=== PATIENT | male | born 1945 | race Hispanic/Latino ===

== ENCOUNTER 2017-09-28 15:38 | Inpatient (IN) | payer MEDICARE ==
[~2017-09-28] VITALS: Ht 175.3 cm; Wt 52.2 kg
[2017-09-28] MEDS ORDERED: VANCOMYCIN 1GM/NS 250 ML 250 ML IV STA (16:18)
[2017-09-28] MEDS ORDERED: PIPER-TAZ 3.375 GM 50 ML IV STA (16:18)
[2017-09-28] MEDS ORDERED: HYDROMORPHONE 1MG/1ML INJ IV PRN (16:30)
[2017-09-28] MEDS ORDERED: ONDANSETRON HCL INJ 2 MG/ML VIAL IV PRN (16:30)
[2017-09-28 16:38] LABS: BASOPHILS % 0.4 % (0.0-1.0); EOSINOPHILS # (AUTO) 0.1 (0.0-0.4); EOSINOPHILS % 0.9 % (0.0-6.0); HEMATOCRIT 32.1 % (38.2-49.6); HEMOGLOBIN 9.9 g/dL (14.0-18.0); LYMPHOCYTES # (AUTO) 1.3 (1.0-3.2); LYMPHOCYTES % 19.7 % (18.0-39.1); MEAN CORPUSCULAR HGB CONC 30.8 g/dL (31-35); MEAN CORPUSCULAR VOLUME 87.7 fL (81-99); MONOCYTES # (AUTO) 0.8 (0.2-0.8); MONOCYTES % 11.3 % (4.4-11.3); NEUTROPHILS # (AUTO) 4.6 (2.1-6.9); NEUTROPHILS % 67.6 % (38.7-80.0); PLATELET COUNT 300 x10e3/uL (140-360); RED BLOOD COUNT 3.66 x10e6/uL (4.3-5.7); RED CELL DISTRIBUTION WIDTH 14.1 % (11.7-14.4)
[2017-09-28 16:53] LABS: ALANINE AMINOTRANSFERASE 24 IU/L (0-55); ALBUMIN 2.8 g/dL (3.5-5.0); ALBUMIN/GLOBULIN RATIO 0.5 (0.8-2.0); ALKALINE PHOSPHATASE 151 IU/L (40-150); ANION GAP 14.3 mmol/L (8-16); BLOOD UREA NITROGEN 26 mg/dL (7-26); BUN/CREATININE RATIO 32 (6-25); CALCIUM 9.1 mg/dL (8.4-10.2); CARBON DIOXIDE 28 mmol/L (22-29); CHLORIDE 105 mmol/L (98-107); CREATININE, SERUM 0.82 mg/dL (0.72-1.25); EST GLOMERULAR FILTRATION RATE > 60 ML/MIN (60-); GLUCOSE 103 mg/dL (74-118); POTASSIUM 4.3 mmol/L (3.5-5.1); SODIUM 143 mmol/L (136-145)
--- NOTE | 2017-09-28 17:09 | Diagnostic Imaging Report ---
PROCEDURE: CHEST SINGLE (PORTABLE) COMPARISON: None. INDICATIONS: COUGH FINDINGS: LUNGS: No consolidations or edema. PLEURA: No effusions or pneumothorax. HEART \T\ MEDIASTINUM: The heart is within normal size-limits. BONES \T\ SOFT TISSUES: No acute findings. Linear metallic object projecting just medial to the left clavicular head may be external to the patient. Skin folds project over the right hemithorax. CONCLUSION: No acute cardiopulmonary abnormality. Dictated by: Felix Ramesh M.D. on 09/28/2017 at 17:17 Electronically approved by: Felix Ramesh M.D. on 09/28/2017 at 17:17
[2017-09-28] MEDS: SODIUM CHLORIDE 0.9% 1000ML 1,000 ML IV SCH (18:57)
[2017-09-28] MEDS ORDERED: QUETIAPINE FUMA25 MG PEG (19:29)
[2017-09-28] MEDS ORDERED: LEVETIRACE100 MG/1 M PEG (19:29)
[2017-09-28] MEDS ORDERED: LAMOTRIGINE100 MG PEG (19:29)
[2017-09-28] MEDS ORDERED: FLUCONAZOLE100 MG PEG (19:29)
[2017-09-28] MEDS ORDERED: PHENYTOIN125 MG/5 M PEG (19:29)
[2017-09-28] MEDS ORDERED: CLONAZEPAM1 MG PEG (19:31)
[2017-09-28 21:20] VITALS: BP 110/79
[2017-09-28] MEDS ORDERED: VANCOMYCIN 1GM/NS 250 ML 250 ML ONE (21:37)
[2017-09-29] VITALS: BP 120/74
[2017-09-29 04:00] VITALS: BP 124/72
[2017-09-29] MEDS: QUETIAPINE FUMARATE 25 MG TAB PEG SCH ×3 (06:23→21:00)
[2017-09-29] MEDS ORDERED: ACETAMINOPHEN 325 MG TAB PO ONE (06:45)
[2017-09-29] MEDS ORDERED: FUROSEMIDE INJ 10 MG/ML 2 ML VIAL IV ONE (06:45)
[2017-09-29 07:49] VITALS: BP 125/59
[2017-09-29] MEDS: ALBUTEROL/IPRATROPIUM 3 ML NEB NEB SCH ×3 (07:50→20:00)
[2017-09-29] MEDS: LEVETIRACETAM ORAL SOLUTION 500 MG/5 ML SOLN PEG SCH ×2 (11:08→17:00)
[2017-09-29] MEDS: LAMOTRIGINE 100 MG TAB PEG SCH ×2 (11:12→17:00)
--- NOTE | 2017-09-29 11:38 | Consultation ---
DATE OF CONSULTATION: September 29, 2017 REFERRING PHYSICIAN: Dr. Gonzalez HISTORY OF PRESENT ILLNESS: Patient is a 72-year-old male, bedridden, who was admitted with bleeding from the sacral ulcer. 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 He is not completely bedridden, says this is the first time he has had sacral ulcer, apparently started bleeding yesterday and he came to the emergency room, but there was no active bleeding at the time the patient was seen. PAST MEDICAL HISTORY: Significant for hypertension and diabetes. MEDICATIONS: Listed in the chart. ALLERGIES: HE HAS NO KNOWN ALLERGIES. FAMILY HISTORY: Noncontributory. SOCIAL HISTORY: Noncontributory. REVIEW OF SYSTEMS: Cannot be obtained. PHYSICAL EXAMINATION: The patient is awake, does not answer questions. Significant findings are contractures of the extremities. In the sacral area, there is an ulcer that is about 5 x 6 cm with a central necrotic area with some granulation tissue surrounding. Small amount of bleeding on the patient's dressing is noted, but no active bleeding. ASSESSMENT: A 72-year-old male with stage 3 sacral ulcer, admitted with bleeding, but also some necrotic tissue. Likely benefit from debridement, which I plan to schedule to be done in operating room. Procedure was explained to the patient's family. Thank you for asking me to see Mr. Miranda. Job#: [id number]
[2017-09-29 12:00] VITALS: BP 120/53
[2017-09-29] MEDS: PHENYTOIN 100 MG/4 ML CUP PO SCH (12:00)
[2017-09-29 16:04] VITALS: BP 117/56
[2017-09-29] MEDS ORDERED: LEVETIRACETAM 500 MG TAB PEG SCH (17:00)
[2017-09-29] MEDS ORDERED: ENOXAPARIN SOD INJ 40 MG/0.4 ML SYR SC SCH (18:45)
[2017-09-29] MEDS: GUAIFENESIN 200 MG/10 ML UDC PO SCH (19:00)
[2017-09-29] MEDS: LEVOFLOXACIN 750MG/D5W 150ML 150 ML IV SCH (19:15)
[2017-09-29 20:00] VITALS: BP 106/75
[2017-09-29] MEDS: PIPER-TAZ 3.375 GM 50 ML IV SCH (20:00)
--- NOTE | 2017-09-29 20:36 | History and Physical ---
PRIMARY CARE PROVIDER: Dr. Jeremy Gonzalez. CHIEF COMPLAINT: Infected sacral wound was uncontrolled bleeding. HISTORY OF PRESENT ILLNESS: Mr. Miranda is a 72-year-old gentleman with a history of severe stroke with dementia and dysphagia, aphagia with a PEG and seizure disorder. The patient is taken care of at home by his . She was doing a dressing changes on his sacral wound, which started bleeding and she could not get it to stop and so she called EMS and the patient was transported here for evaluation. REVIEW OF SYSTEMS: Unobtainable as the patient is noncommunicative. PAST MEDICAL HISTORY: Significant for the old stroke with seizure disorder. He has a history of PEG placement. CURRENT MEDICATIONS: Keppra 250 mg twice daily. Dilantin 125 mg daily. Lamictal 200 mg twice daily. Seroquel 50 mg 3 times a day. Clonazepam 2 mg at bedtime. ALLERGIES: HE HAS A STATED ALLERGY TO RISPERDAL. FAMILY HISTORY: Remarkable for hypertension. SOCIAL HISTORY: The patient is being cared for at home by his family. He is bedridden and nonambulatory with a PEG feeding tube. He does not smoke, drink or use illegal drugs obviously and requires complete care by his family, total care. PHYSICAL EXAM: PSYCHIATRIC: The patient is sleeping. He was given Ativan earlier today. He has a normal body habitus. Is in no acute distress. VITAL SIGNS: Blood pressure 117/56. Pulse 93 and regular. Respiratory rate 22. O2 sat 93% on 2 liter nasal cannula. Temp 99.1. HEENT: Head is atraumatic. His eyes are anicteric with clear conjunctivae. Ears and nares are without erythema or discharge. Oropharynx is clear. NECK: Is supple with no mass or thyromegaly. LYMPHATIC SYSTEM: He has no palpable cervical, axillary or inguinal adenopathy. CARDIOVASCULAR: He has a regular rate and rhythm without murmur or extra heart sounds. No peripheral edema. Has no carotid bruit. RESPIRATORY: He has coarse breath sounds with some bronchial congestion with normal respiratory effort. No wheezing. GASTROINTESTINAL: Abdomen is soft with no hepatosplenomegaly or masses palpable. Nontender. Normal bowel sounds are present. He has a functioning PEG tube in place. CUTANEOUS: His skin is warm and dry to touch. He has a stage 4 sacral decubitus. with some gross purulence and necrotic tissue as well as some active bleeding. MUSCULOSKELETAL: His joints are normal alignment without erythema or swelling. Has no calf tenderness. NEUROLOGIC: The patient is demented and does not follow commands but he does move all extremities. DIAGNOSTIC STUDIES: Chest x-ray shows no acute disease. CBC shows a white count of 6.81 with a normal differential. Hemoglobin 9.9, hematocrit 32.1 and platelet count 300,000. His chemistry shows normal electrolytes. CO2 28. Creatinine 0.82. BUN 26 for a normal GFR. Calcium 9.1. Glucose 103. Transaminases, bilirubin and alk phos were all normal. IMPRESSION AND PLAN 1. Infected and bleeding sacral decubitus. The patient has been started on IV vancomycin and Zosyn. Wound care has been consulted as well as the wound cultures have been ordered and Dr. Murray has been consulted for possible debridement and the patient has been started on IV vancomycin and Zosyn empirically. 2. Bronchitis. The patient was started on IV Levaquin for that as well as nebulizer treatments and Mucinex for expectoration. 3. Old stroke with seizures and dementia. The patient will continue his tube feeding and continue Keppra, Lamictal and Seroquel as before. 4. For prophylaxis the patient is on Lovenox for DVT prophylaxis and Pepcid for GI prophylaxis. Job#: [id number]
[2017-09-29] MEDS: VANCOMYCIN 1GM/NS 250 ML 250 ML IV SCH (21:00)
[2017-09-29] MEDS: FAMOTIDINE 20 MG TAB PEG SCH (21:00)
[2017-09-29] MEDS ORDERED: CLONAZEPAM 1 MG TAB PEG SCH (21:00)
[2017-09-29] MEDS: METOCLOPRAMIDE HCL 10 MG TAB PEG SCH (22:00)
[2017-09-30] VITALS: BP 120/68
[2017-09-30] MEDS: GUAIFENESIN 200 MG/10 ML UDC PO SCH ×4 (00:08→18:14)
[2017-09-30] MEDS: ALBUTEROL/IPRATROPIUM 3 ML NEB NEB SCH ×4 (00:30→20:02)
[2017-09-30] MEDS: PIPER-TAZ 3.375 GM 50 ML IV SCH ×4 (02:00→21:01)
[2017-09-30 04:00] VITALS: BP 119/89
[2017-09-30] MEDS: METOCLOPRAMIDE HCL 10 MG TAB PEG SCH ×3 (05:37→23:16)
[2017-09-30 07:03] LABS: BASOPHILS % 0.3 % (0.0-1.0); EOSINOPHILS % 0.3 % (0.0-6.0); HEMATOCRIT 27.5 % (38.2-49.6); HEMOGLOBIN 8.5 g/dL (14.0-18.0); LYMPHOCYTES # (AUTO) 1.1 (1.0-3.2); LYMPHOCYTES % 18.7 % (18.0-39.1); MEAN CORPUSCULAR HEMOGLOBIN 26.9 pg (28-32); MEAN CORPUSCULAR HGB CONC 30.9 g/dL (31-35); MONOCYTES # (AUTO) 0.8 (0.2-0.8); MONOCYTES % 13.1 % (4.4-11.3); NEUTROPHILS # (AUTO) 3.9 (2.1-6.9); NEUTROPHILS % 67.1 % (38.7-80.0); PLATELET COUNT 318 x10e3/uL (140-360); RED BLOOD COUNT 3.16 x10e6/uL (4.3-5.7); RED CELL DISTRIBUTION WIDTH 13.7 % (11.7-14.4)
[2017-09-30 07:25] LABS: ANION GAP 13.2 mmol/L (8-16); BLOOD UREA NITROGEN 15 mg/dL (7-26); BUN/CREATININE RATIO 20 (6-25); CALCIUM 8.3 mg/dL (8.4-10.2); CARBON DIOXIDE 25 mmol/L (22-29); CHLORIDE 106 mmol/L (98-107); CREATININE, SERUM 0.75 mg/dL (0.72-1.25); EST GLOMERULAR FILTRATION RATE > 60 ML/MIN (60-); GLUCOSE 82 mg/dL (74-118); MAGNESIUM 1.3 MG/DL (1.3-2.1); POTASSIUM 3.2 mmol/L (3.5-5.1); SODIUM 141 mmol/L (136-145)
[2017-09-30 07:38] VITALS: BP 110/67
[2017-09-30 07:50] LABS: FREE T4 (FREE THYROXINE) 0.86 ng/dL (0.8-1.8); THYROID STIMULATING HORMONE 2.727 uIU/mL (0.350-4.940)
[2017-09-30] MEDS ORDERED: PHENYTOIN PEG SCH (09:00)
[2017-09-30] MEDS: QUETIAPINE FUMARATE 25 MG TAB PEG SCH ×3 (09:31→23:16)
[2017-09-30] MEDS: LEVETIRACETAM ORAL SOLUTION 500 MG/5 ML SOLN PEG SCH ×2 (09:31→18:14)
[2017-09-30] MEDS: LAMOTRIGINE 100 MG TAB PEG SCH ×2 (09:31→18:14)
[2017-09-30] MEDS: FAMOTIDINE 20 MG TAB PEG SCH ×2 (09:31→23:16)
[2017-09-30] MEDS ORDERED: POTASSIUM CHLORIDE 20MEQ/100ML 100 ML IV STA (09:42)
[2017-09-30] MEDS ORDERED: POTASSIUM CHLORIDE 20 MEQ TAB CR PO STA (09:42)
[2017-09-30] MEDS: SODIUM CHLORIDE 0.9% 1000ML 1,000 ML IV SCH ×3 (10:07→22:45)
[2017-09-30] MEDS: VANCOMYCIN 1GM/NS 250 ML 250 ML IV SCH ×2 (12:26→21:00)
[2017-09-30] MEDS ORDERED: CLONAZEPAM 1 MG TAB PEG SCH ×2 (12:31→17:00)
[2017-09-30 12:40] VITALS: BP 146/92
[2017-09-30] MEDS ORDERED: ACETAMINOPHEN 325 MG TAB PO PRN (12:45)
[2017-09-30] MEDS: HYDROCODONE BIT/ACETAMINOPHEN 2.5 MG/108MG PER 5 ML SOLUTION PEG PRN (13:04)
[2017-09-30] MEDS: PHENYTOIN 100 MG/4 ML CUP PO SCH (13:05)
[2017-09-30 15:46] VITALS: BP 110/67
--- NOTE | 2017-09-30 15:49 | Operative Report ---
DATE OF PROCEDURE: September 30, 2017 PREOPERATIVE DIAGNOSIS: Necrotic sacral ulcer with bleeding. POSTOPERATIVE DIAGNOSIS: Necrotic sacral ulcer with bleeding secondary to subcutaneous vessel. PROCEDURE: Excisional debridement of sacral ulcer with suture ligation of bleeding vessel. NON LICENSED NUCLEAR EQUIPMENT OPERATOR: None. ANESTHESIA: General. INDICATIONS AND FINDINGS: Patient is a 72-year-old male bedridden who has a sacral ulcer which was bleeding. At surgery there was necrotic tissue essentially and area of bleeding adjacent to this and it was found that the ulcer was eroding into a subcutaneous vessel which was bleeding. TECHNIQUE: After adequate general anesthesia with the patient in the right side down position, the sacral area was prepped and draped in a sterile fashion with Betadine solution. There was some bleeding from the area adjacent the central area of necrosis over the sacrum. Examination revealed subcutaneous vessel this area that was bleeding. Necrotic tissue was excised and the subcutaneous vessel was identified and suture ligated with 2-0 Vicryl and the bleeding stopped. All necrotic tissue and some undermined tissue was excised back to healthy bleeding tissue. Another area at the skin edge inferiorly was also suture ligated with 2-0 Vicryl. Other areas were cauterized with electrocautery and hemostasis achieved. The wound was then irrigated with saline and inspected for hemostasis which was seen to be adequate. The wound was then dressed open with saline moistened gauze and sterile dressing applied. Patient tolerated procedure well. Estimated blood loss was 25 mL. There were no complications. All counts were correct. Patient was taken to the recovery room in satisfactory condition. Job#: [id number] cc:APRIL WASSERMAN MD
[2017-09-30] MEDS: LEVOFLOXACIN 750MG/D5W 150ML 150 ML IV SCH (18:14)
[2017-09-30 22:00] VITALS: BP 133/74
[2017-09-30] MEDS: CLONAZEPAM 1 MG TAB PEG SCH (23:16)
[2017-10-01] MEDS: ALBUTEROL/IPRATROPIUM 3 ML NEB NEB SCH ×4 (00:18→19:43)
[2017-10-01 00:47] VITALS: BP 137/72
[2017-10-01] MEDS: PIPER-TAZ 3.375 GM 50 ML IV SCH ×4 (01:53→21:00)
[2017-10-01] MEDS: GUAIFENESIN 200 MG/10 ML UDC PO SCH ×4 (01:53→18:33)
[2017-10-01 04:00] VITALS: BP 95/87
[2017-10-01] MEDS: METOCLOPRAMIDE HCL 10 MG TAB PEG SCH ×3 (05:07→21:24)
[2017-10-01] MEDS: HYDROCODONE BIT/ACETAMINOPHEN 2.5 MG/108MG PER 5 ML SOLUTION PEG PRN (05:08)
[2017-10-01 07:38] LABS: BASOPHILS % 0.2 % (0.0-1.0); EOSINOPHILS % 0.6 % (0.0-6.0); HEMOGLOBIN 8.1 g/dL (14.0-18.0); LYMPHOCYTES # (AUTO) 0.8 (1.0-3.2); MEAN CORPUSCULAR HEMOGLOBIN 26.9 pg (28-32); MEAN CORPUSCULAR HGB CONC 31.2 g/dL (31-35); MEAN CORPUSCULAR VOLUME 86.4 fL (81-99); MONOCYTES # (AUTO) 0.8 (0.2-0.8); MONOCYTES % 14.6 % (4.4-11.3); NEUTROPHILS # (AUTO) 3.6 (2.1-6.9); NEUTROPHILS % 68.4 % (38.7-80.0); PLATELET COUNT 284 x10e3/uL (140-360); RED BLOOD COUNT 3.01 x10e6/uL (4.3-5.7); RED CELL DISTRIBUTION WIDTH 13.8 % (11.7-14.4)
[2017-10-01 07:39] VITALS: BP 112/66
[2017-10-01 07:51] LABS: ANION GAP 12.4 mmol/L (8-16); BLOOD UREA NITROGEN 10 mg/dL (7-26); BUN/CREATININE RATIO 13 (6-25); CALCIUM 8.4 mg/dL (8.4-10.2); CARBON DIOXIDE 26 mmol/L (22-29); CHLORIDE 108 mmol/L (98-107); CREATININE, SERUM 0.76 mg/dL (0.72-1.25); EST GLOMERULAR FILTRATION RATE > 60 ML/MIN (60-); GLUCOSE 89 mg/dL (74-118); POTASSIUM 3.4 mmol/L (3.5-5.1); SODIUM 143 mmol/L (136-145)
[2017-10-01] MEDS: FAMOTIDINE 20 MG TAB PEG SCH ×2 (08:56→21:24)
[2017-10-01] MEDS: LEVETIRACETAM ORAL SOLUTION 500 MG/5 ML SOLN PEG SCH ×2 (08:56→16:47)
[2017-10-01] MEDS: LAMOTRIGINE 100 MG TAB PEG SCH ×2 (08:56→16:40)
[2017-10-01] MEDS: QUETIAPINE FUMARATE 25 MG TAB PEG SCH ×3 (08:56→21:24)
[2017-10-01] MEDS: CLONAZEPAM 1 MG TAB PEG SCH ×2 (08:56→21:24)
[2017-10-01 11:28] VITALS: BP 118/59
[2017-10-01] MEDS ORDERED: POTASSIUM CHLORIDE 20 MEQ TAB CR PO STA (14:04)
[2017-10-01] MEDS: PHENYTOIN 100 MG/4 ML CUP PO SCH (14:08)
[2017-10-01 15:41] VITALS: BP 105/68
[2017-10-01] MEDS: MAGNESIUM OXIDE 400 MG TAB PEG SCH (16:40)
[2017-10-01] MEDS: LEVOFLOXACIN 750MG/D5W 150ML 150 ML IV SCH (18:33)
[2017-10-01 20:00] VITALS: BP 109/72
[2017-10-02] VITALS: BP 127/73
[2017-10-02] MEDS: GUAIFENESIN 200 MG/10 ML UDC PO SCH ×4 (00:53→18:24)
[2017-10-02] MEDS: ALBUTEROL/IPRATROPIUM 3 ML NEB NEB SCH ×5 (01:15→23:05)
[2017-10-02] MEDS: PIPER-TAZ 3.375 GM 50 ML IV SCH ×2 (02:14→08:34)
[2017-10-02 04:00] VITALS: BP 114/54
[2017-10-02] MEDS: METOCLOPRAMIDE HCL 10 MG TAB PEG SCH ×3 (06:18→22:00)
[2017-10-02 07:01] LABS: BASOPHILS % 0.2 % (0.0-1.0); EOSINOPHILS # (AUTO) 0.1 (0.0-0.4); EOSINOPHILS % 1.6 % (0.0-6.0); HEMATOCRIT 26.1 % (38.2-49.6); HEMOGLOBIN 8.3 g/dL (14.0-18.0); LYMPHOCYTES # (AUTO) 1.1 (1.0-3.2); LYMPHOCYTES % 20.4 % (18.0-39.1); MEAN CORPUSCULAR HEMOGLOBIN 27.2 pg (28-32); MEAN CORPUSCULAR HGB CONC 31.8 g/dL (31-35); MEAN CORPUSCULAR VOLUME 85.6 fL (81-99); MONOCYTES # (AUTO) 0.7 (0.2-0.8); MONOCYTES % 12.8 % (4.4-11.3); NEUTROPHILS # (AUTO) 3.3 (2.1-6.9); NEUTROPHILS % 64.6 % (38.7-80.0); PLATELET COUNT 294 x10e3/uL (140-360); RED BLOOD COUNT 3.05 x10e6/uL (4.3-5.7); RED CELL DISTRIBUTION WIDTH 14.1 % (11.7-14.4)
[2017-10-02 07:14] LABS: ANION GAP 10.4 mmol/L (8-16); BLOOD UREA NITROGEN 10 mg/dL (7-26); BUN/CREATININE RATIO 13 (6-25); CARBON DIOXIDE 26 mmol/L (22-29); CHLORIDE 109 mmol/L (98-107); CREATININE, SERUM 0.78 mg/dL (0.72-1.25); EST GLOMERULAR FILTRATION RATE > 60 ML/MIN (60-); GLUCOSE 108 mg/dL (74-118); MAGNESIUM 1.6 MG/DL (1.3-2.1); POTASSIUM 3.4 mmol/L (3.5-5.1); SODIUM 142 mmol/L (136-145)
[2017-10-02 07:37] VITALS: BP 115/61
[2017-10-02] MEDS: CLONAZEPAM 1 MG TAB PEG SCH ×2 (08:34→21:18)
[2017-10-02] MEDS: FAMOTIDINE 20 MG TAB PEG SCH ×2 (08:34→21:18)
[2017-10-02] MEDS: MAGNESIUM OXIDE 400 MG TAB PEG SCH ×2 (08:34→18:24)
[2017-10-02] MEDS: QUETIAPINE FUMARATE 25 MG TAB PEG SCH ×3 (08:34→21:18)
[2017-10-02] MEDS: LEVETIRACETAM ORAL SOLUTION 500 MG/5 ML SOLN PEG SCH ×2 (08:34→18:24)
[2017-10-02] MEDS: LAMOTRIGINE 100 MG TAB PEG SCH ×2 (08:34→18:24)
[2017-10-02] MEDS ORDERED: POTASSIUM CHLORIDE 20MEQ/100ML 100 ML IV ONE (12:15)
[2017-10-02 12:54] VITALS: BP 106/59
[2017-10-02] MEDS ORDERED: POTASSIUM CHLORIDE 20 MEQ TAB CR PO ONE (13:20)
[2017-10-02] MEDS: ACETYLCYSTEINE 20% INHAL SOLN 30 ML VIAL INH SCH ×3 (13:35→23:05)
[2017-10-02] MEDS: PHENYTOIN 100 MG/4 ML CUP PO SCH (13:38)
[2017-10-02 16:54] VITALS: BP 127/65
[2017-10-02] MEDS: ASCORBIC ACID 500 MG TAB PEG SCH (18:24)
[2017-10-02] MEDS: FERROUS SULFATE 325 MG TAB PEG SCH (18:24)
[2017-10-02] MEDS: CALCIUM CARBONATE 500 MG CHEWABLE TABS PEG SCH (18:24)
[2017-10-02] MEDS: LEVOFLOXACIN 750MG/D5W 150ML 150 ML IV SCH (18:25)
[2017-10-02 20:00] VITALS: BP 135/78
[2017-10-03] VITALS: BP 109/76
[2017-10-03] MEDS: ALBUTEROL/IPRATROPIUM 3 ML NEB NEB SCH ×6 (02:57→23:45)
[2017-10-03] MEDS: ACETYLCYSTEINE 20% INHAL SOLN 30 ML VIAL INH SCH ×6 (02:57→23:45)
[2017-10-03 04:00] VITALS: BP 136/55
[2017-10-03] MEDS: METOCLOPRAMIDE HCL 10 MG TAB PEG SCH ×3 (05:19→22:40)
[2017-10-03] MEDS: GUAIFENESIN 200 MG/10 ML UDC PO SCH ×6 (05:20→23:21)
[2017-10-03 08:13] LABS: BASOPHILS % 0.3 % (0.0-1.0); EOSINOPHILS # (AUTO) 0.1 (0.0-0.4); EOSINOPHILS % 1.5 % (0.0-6.0); HEMATOCRIT 28.9 % (38.2-49.6); HEMOGLOBIN 9.1 g/dL (14.0-18.0); LYMPHOCYTES # (AUTO) 1.3 (1.0-3.2); LYMPHOCYTES % 20.3 % (18.0-39.1); MEAN CORPUSCULAR HEMOGLOBIN 26.8 pg (28-32); MEAN CORPUSCULAR HGB CONC 31.5 g/dL (31-35); MEAN CORPUSCULAR VOLUME 85.3 fL (81-99); MONOCYTES # (AUTO) 0.7 (0.2-0.8); MONOCYTES % 9.8 % (4.4-11.3); NEUTROPHILS # (AUTO) 4.5 (2.1-6.9); NEUTROPHILS % 67.8 % (38.7-80.0); PLATELET COUNT 335 x10e3/uL (140-360); RED BLOOD COUNT 3.39 x10e6/uL (4.3-5.7); RED CELL DISTRIBUTION WIDTH 14.2 % (11.7-14.4)
[2017-10-03 08:41] LABS: ANION GAP 11.6 mmol/L (8-16); BLOOD UREA NITROGEN 11 mg/dL (7-26); BUN/CREATININE RATIO 15 (6-25); CALCIUM 8.5 mg/dL (8.4-10.2); CARBON DIOXIDE 25 mmol/L (22-29); CHLORIDE 108 mmol/L (98-107); CREATININE, SERUM 0.71 mg/dL (0.72-1.25); EST GLOMERULAR FILTRATION RATE > 60 ML/MIN (60-); GLUCOSE 115 mg/dL (74-118); MAGNESIUM 1.4 MG/DL (1.3-2.1); POTASSIUM 3.6 mmol/L (3.5-5.1); SODIUM 141 mmol/L (136-145)
[2017-10-03 08:56] VITALS: BP_SYST 114; BP_SYST 130; BP_DIAS 58; BP_DIAS 65
[2017-10-03] MEDS: CALCIUM CARBONATE 500 MG CHEWABLE TABS PEG SCH ×2 (09:30→17:14)
[2017-10-03] MEDS: LEVETIRACETAM ORAL SOLUTION 500 MG/5 ML SOLN PEG SCH ×2 (09:30→17:14)
[2017-10-03] MEDS: QUETIAPINE FUMARATE 25 MG TAB PEG SCH ×3 (09:30→20:22)
[2017-10-03] MEDS: ASCORBIC ACID 500 MG TAB PEG SCH ×2 (09:30→17:14)
[2017-10-03] MEDS: MULTIVITAMINS 5 ML LIQUID GT SCH (09:30)
[2017-10-03] MEDS: FERROUS SULFATE 325 MG TAB PEG SCH ×2 (09:30→17:14)
[2017-10-03] MEDS: MAGNESIUM OXIDE 400 MG TAB PEG SCH ×2 (09:30→17:14)
[2017-10-03] MEDS: FAMOTIDINE 20 MG TAB PEG SCH ×2 (09:30→20:22)
[2017-10-03] MEDS: CLONAZEPAM 1 MG TAB PEG SCH ×2 (09:30→20:22)
[2017-10-03] MEDS: LAMOTRIGINE 100 MG TAB PEG SCH ×2 (09:30→17:14)
[2017-10-03] MEDS: HYDROCODONE BIT/ACETAMINOPHEN 2.5 MG/108MG PER 5 ML SOLUTION PEG PRN (11:32)
[2017-10-03] MEDS: PHENYTOIN 100 MG/4 ML CUP PO SCH (11:32)
[2017-10-03 13:07] VITALS: BP 128/57
[2017-10-03 16:11] VITALS: BP 107/63
[2017-10-03] MEDS: LEVOFLOXACIN 750MG/D5W 150ML 150 ML IV SCH (18:43)
[2017-10-03 20:00] VITALS: BP 92/62
[2017-10-04] VITALS: BP 102/60
[2017-10-04] MEDS: HYDROCODONE BIT/ACETAMINOPHEN 2.5 MG/108MG PER 5 ML SOLUTION PEG PRN ×3 (01:06→20:10)
[2017-10-04] MEDS: ACETYLCYSTEINE 20% INHAL SOLN 30 ML VIAL INH SCH ×6 (03:00→23:30)
[2017-10-04 04:00] VITALS: BP 102/81
[2017-10-04] MEDS: ALBUTEROL/IPRATROPIUM 3 ML NEB NEB SCH ×6 (04:15→23:30)
[2017-10-04] MEDS: GUAIFENESIN 200 MG/10 ML UDC PO SCH ×4 (06:13→23:45)
[2017-10-04] MEDS: METOCLOPRAMIDE HCL 10 MG TAB PEG SCH ×3 (06:13→21:06)
[2017-10-04 07:58] VITALS: BP 110/58
[2017-10-04 08:42] LABS: BASOPHILS % 0.3 % (0.0-1.0); EOSINOPHILS # (AUTO) 0.1 (0.0-0.4); EOSINOPHILS % 0.7 % (0.0-6.0); HEMATOCRIT 27.5 % (38.2-49.6); HEMOGLOBIN 8.5 g/dL (14.0-18.0); LYMPHOCYTES # (AUTO) 0.9 (1.0-3.2); LYMPHOCYTES % 12.6 % (18.0-39.1); MEAN CORPUSCULAR HEMOGLOBIN 26.6 pg (28-32); MEAN CORPUSCULAR HGB CONC 30.9 g/dL (31-35); MEAN CORPUSCULAR VOLUME 86.2 fL (81-99); MONOCYTES # (AUTO) 0.6 (0.2-0.8); MONOCYTES % 8.8 % (4.4-11.3); NEUTROPHILS # (AUTO) 5.2 (2.1-6.9); NEUTROPHILS % 77.3 % (38.7-80.0); PLATELET COUNT 311 x10e3/uL (140-360); RED BLOOD COUNT 3.19 x10e6/uL (4.3-5.7); RED CELL DISTRIBUTION WIDTH 14.2 % (11.7-14.4)
[2017-10-04] MEDS: MULTIVITAMINS 5 ML LIQUID GT SCH (09:00)
[2017-10-04 09:25] LABS: ANION GAP 10.5 mmol/L (8-16); BLOOD UREA NITROGEN 16 mg/dL (7-26); BUN/CREATININE RATIO 21 (6-25); CALCIUM 8.3 mg/dL (8.4-10.2); CARBON DIOXIDE 27 mmol/L (22-29); CHLORIDE 106 mmol/L (98-107); CREATININE, SERUM 0.77 mg/dL (0.72-1.25); EST GLOMERULAR FILTRATION RATE > 60 ML/MIN (60-); GLUCOSE 148 mg/dL (74-118); POTASSIUM 3.5 mmol/L (3.5-5.1); SODIUM 140 mmol/L (136-145)
[2017-10-04] MEDS: LEVETIRACETAM ORAL SOLUTION 500 MG/5 ML SOLN PEG SCH ×2 (09:45→17:39)
[2017-10-04] MEDS: CALCIUM CARBONATE 500 MG CHEWABLE TABS PEG SCH ×2 (09:45→17:39)
[2017-10-04] MEDS: CLONAZEPAM 1 MG TAB PEG SCH ×2 (09:45→20:09)
[2017-10-04] MEDS: ASCORBIC ACID 500 MG TAB PEG SCH ×2 (09:45→17:39)
[2017-10-04] MEDS: LAMOTRIGINE 100 MG TAB PEG SCH ×2 (09:45→17:39)
[2017-10-04] MEDS: QUETIAPINE FUMARATE 25 MG TAB PEG SCH ×3 (09:45→20:09)
[2017-10-04] MEDS: FERROUS SULFATE 325 MG TAB PEG SCH ×2 (09:45→17:39)
[2017-10-04] MEDS: MAGNESIUM OXIDE 400 MG TAB PEG SCH ×2 (09:45→17:39)
[2017-10-04] MEDS: FAMOTIDINE 20 MG TAB PEG SCH ×2 (09:45→20:09)
[2017-10-04] MEDS: PHENYTOIN 100 MG/4 ML CUP PO SCH (11:45)
[2017-10-04 12:22] VITALS: BP 151/66
[2017-10-04 16:19] VITALS: BP 114/60
[2017-10-04] MEDS: LEVOFLOXACIN 750MG/D5W 150ML 150 ML IV SCH (18:03)
[2017-10-04 20:00] VITALS: BP 120/63
[2017-10-04 23:58] LABS: FERRITIN 62.01 ng/mL (21.81-274.66)
[2017-10-05] VITALS: BP 119/85
[2017-10-05 00:05] LABS: FOLATE > 20.0 ng/mL (7.0-15.4)
[2017-10-05] MEDS: HYDROCODONE BIT/ACETAMINOPHEN 2.5 MG/108MG PER 5 ML SOLUTION PEG PRN (00:39)
[2017-10-05] MEDS: ACETYLCYSTEINE 20% INHAL SOLN 30 ML VIAL INH SCH ×6 (03:00→23:25)
[2017-10-05] MEDS: ALBUTEROL/IPRATROPIUM 3 ML NEB NEB SCH ×6 (03:00→23:25)
[2017-10-05 04:00] VITALS: BP 126/66
[2017-10-05] MEDS: METOCLOPRAMIDE HCL 10 MG TAB PEG SCH ×3 (05:25→21:23)
[2017-10-05] MEDS: GUAIFENESIN 200 MG/10 ML UDC PO SCH ×4 (05:25→23:53)
[2017-10-05 07:12] LABS: BASOPHILS % 0.2 % (0.0-1.0); EOSINOPHILS # (AUTO) 0.1 (0.0-0.4); EOSINOPHILS % 0.9 % (0.0-6.0); HEMATOCRIT 27.8 % (38.2-49.6); HEMOGLOBIN 8.6 g/dL (14.0-18.0); LYMPHOCYTES # (AUTO) 0.9 (1.0-3.2); LYMPHOCYTES % 10.6 % (18.0-39.1); MEAN CORPUSCULAR HEMOGLOBIN 26.7 pg (28-32); MEAN CORPUSCULAR HGB CONC 30.9 g/dL (31-35); MEAN CORPUSCULAR VOLUME 86.3 fL (81-99); MONOCYTES # (AUTO) 0.7 (0.2-0.8); NEUTROPHILS # (AUTO) 6.5 (2.1-6.9); NEUTROPHILS % 78.9 % (38.7-80.0); PLATELET COUNT 332 x10e3/uL (140-360); RED BLOOD COUNT 3.22 x10e6/uL (4.3-5.7); RED CELL DISTRIBUTION WIDTH 14.1 % (11.7-14.4)
[2017-10-05] MEDS: MULTIVITAMINS 5 ML LIQUID GT SCH (07:15)
[2017-10-05 07:48] LABS: ANION GAP 10.4 mmol/L (8-16); BLOOD UREA NITROGEN 15 mg/dL (7-26); BUN/CREATININE RATIO 20 (6-25); CALCIUM 8.4 mg/dL (8.4-10.2); CARBON DIOXIDE 26 mmol/L (22-29); CHLORIDE 104 mmol/L (98-107); CREATININE, SERUM 0.75 mg/dL (0.72-1.25); EST GLOMERULAR FILTRATION RATE > 60 ML/MIN (60-); GLUCOSE 117 mg/dL (74-118); MAGNESIUM 1.7 MG/DL (1.3-2.1); POTASSIUM 3.4 mmol/L (3.5-5.1); SODIUM 137 mmol/L (136-145)
[2017-10-05 08:39] VITALS: BP 133/87
[2017-10-05] MEDS: CLONAZEPAM 1 MG TAB PEG SCH ×2 (09:48→21:23)
[2017-10-05] MEDS: MAGNESIUM OXIDE 400 MG TAB PEG SCH ×2 (09:48→17:30)
[2017-10-05] MEDS: LEVETIRACETAM ORAL SOLUTION 500 MG/5 ML SOLN PEG SCH ×2 (09:48→17:30)
[2017-10-05] MEDS: LAMOTRIGINE 100 MG TAB PEG SCH ×2 (09:48→17:30)
[2017-10-05] MEDS: QUETIAPINE FUMARATE 25 MG TAB PEG SCH ×3 (09:48→21:23)
[2017-10-05] MEDS: FERROUS SULFATE 325 MG TAB PEG SCH ×2 (09:48→17:30)
[2017-10-05] MEDS: ASCORBIC ACID 500 MG TAB PEG SCH ×2 (09:48→17:30)
[2017-10-05] MEDS: FAMOTIDINE 20 MG TAB PEG SCH ×2 (09:48→21:23)
[2017-10-05] MEDS: CALCIUM CARBONATE 500 MG CHEWABLE TABS PEG SCH ×2 (09:48→17:30)
[2017-10-05] MEDS ORDERED: POTASSIUM CHLORIDE 20 MEQ TAB CR PO ONE (11:30)
[2017-10-05] MEDS: PHENYTOIN 100 MG/4 ML CUP PO SCH (11:45)
[2017-10-05 16:00] VITALS: BP 126/58
[2017-10-05] MEDS: LEVOFLOXACIN 750MG/D5W 150ML 150 ML IV SCH (17:47)
[2017-10-05 20:00] VITALS: BP 102/59
[2017-10-06] VITALS: BP 98/56
[2017-10-06] MEDS: ALBUTEROL/IPRATROPIUM 3 ML NEB NEB SCH ×6 (03:40→23:00)
[2017-10-06] MEDS: ACETYLCYSTEINE 20% INHAL SOLN 30 ML VIAL INH SCH ×6 (03:40→23:00)
[2017-10-06 04:00] VITALS: BP 139/70
[2017-10-06] MEDS: HYDROCODONE BIT/ACETAMINOPHEN 2.5 MG/108MG PER 5 ML SOLUTION PEG PRN (05:00)
[2017-10-06] MEDS: METOCLOPRAMIDE HCL 10 MG TAB PEG SCH ×3 (05:48→22:00)
[2017-10-06] MEDS: GUAIFENESIN 200 MG/10 ML UDC PO SCH ×3 (05:48→18:02)
[2017-10-06 06:47] LABS: BASOPHILS % 0.2 % (0.0-1.0); EOSINOPHILS % 0.4 % (0.0-6.0); HEMATOCRIT 27.3 % (38.2-49.6); HEMOGLOBIN 8.5 g/dL (14.0-18.0); LYMPHOCYTES # (AUTO) 0.6 (1.0-3.2); LYMPHOCYTES % 6.3 % (18.0-39.1); MEAN CORPUSCULAR HEMOGLOBIN 26.6 pg (28-32); MEAN CORPUSCULAR HGB CONC 31.1 g/dL (31-35); MEAN CORPUSCULAR VOLUME 85.6 fL (81-99); MONOCYTES # (AUTO) 0.9 (0.2-0.8); MONOCYTES % 8.4 % (4.4-11.3); NEUTROPHILS # (AUTO) 8.5 (2.1-6.9); NEUTROPHILS % 84.4 % (38.7-80.0); PLATELET COUNT 313 x10e3/uL (140-360); RED BLOOD COUNT 3.19 x10e6/uL (4.3-5.7); RED CELL DISTRIBUTION WIDTH 14.3 % (11.7-14.4)
[2017-10-06 07:12] LABS: ANION GAP 13.9 mmol/L (8-16); BLOOD UREA NITROGEN 15 mg/dL (7-26); BUN/CREATININE RATIO 20 (6-25); CALCIUM 8.3 mg/dL (8.4-10.2); CARBON DIOXIDE 25 mmol/L (22-29); CHLORIDE 108 mmol/L (98-107); CREATININE, SERUM 0.75 mg/dL (0.72-1.25); EST GLOMERULAR FILTRATION RATE > 60 ML/MIN (60-); GLUCOSE 160 mg/dL (74-118); POTASSIUM 3.9 mmol/L (3.5-5.1); SODIUM 143 mmol/L (136-145)
[2017-10-06 08:15] LABS: FOLATE 19.1 ng/mL (7.0-15.4)
[2017-10-06 08:16] VITALS: BP 137/75
[2017-10-06] MEDS: CALCIUM CARBONATE 500 MG CHEWABLE TABS PEG SCH ×2 (08:33→18:02)
[2017-10-06] MEDS: MAGNESIUM OXIDE 400 MG TAB PEG SCH ×2 (08:33→18:02)
[2017-10-06] MEDS: FERROUS SULFATE 325 MG TAB PEG SCH ×2 (08:33→18:02)
[2017-10-06] MEDS: FAMOTIDINE 20 MG TAB PEG SCH ×2 (08:33→21:00)
[2017-10-06] MEDS: CLONAZEPAM 1 MG TAB PEG SCH ×2 (08:33→21:00)
[2017-10-06] MEDS: LEVETIRACETAM ORAL SOLUTION 500 MG/5 ML SOLN PEG SCH ×2 (08:33→18:02)
[2017-10-06] MEDS: QUETIAPINE FUMARATE 25 MG TAB PEG SCH ×3 (08:33→21:00)
[2017-10-06] MEDS: LAMOTRIGINE 100 MG TAB PEG SCH ×2 (08:33→18:02)
[2017-10-06] MEDS: ASCORBIC ACID 500 MG TAB PEG SCH ×2 (08:34→18:02)
[2017-10-06] MEDS: MULTIVITAMINS 5 ML LIQUID GT SCH (09:42)
[2017-10-06] MEDS: PHENYTOIN 100 MG/4 ML CUP PO SCH (11:52)
[2017-10-06 12:35] VITALS: BP 103/53
[2017-10-06 16:34] VITALS: BP 92/57
[2017-10-06] MEDS: LEVOFLOXACIN 750MG/D5W 150ML 150 ML IV SCH (18:02)
[2017-10-06 20:00] VITALS: BP 114/58
[2017-10-07] VITALS: BP 165/101
[2017-10-07] MEDS: HYDROCODONE BIT/ACETAMINOPHEN 2.5 MG/108MG PER 5 ML SOLUTION PEG PRN ×2 (01:05→07:52)
[2017-10-07 04:00] VITALS: BP 127/76
[2017-10-07] MEDS: METOCLOPRAMIDE HCL 10 MG TAB PEG SCH ×3 (05:17→22:00)
[2017-10-07] MEDS: GUAIFENESIN 200 MG/10 ML UDC PO SCH ×4 (05:17→17:18)
[2017-10-07 07:01] LABS: BASOPHILS % 0.3 % (0.0-1.0); EOSINOPHILS % 0.3 % (0.0-6.0); HEMATOCRIT 28.3 % (38.2-49.6); HEMOGLOBIN 8.8 g/dL (14.0-18.0); LYMPHOCYTES % 11.1 % (18.0-39.1); MEAN CORPUSCULAR HEMOGLOBIN 27.1 pg (28-32); MEAN CORPUSCULAR HGB CONC 31.1 g/dL (31-35); MEAN CORPUSCULAR VOLUME 87.1 fL (81-99); MONOCYTES # (AUTO) 0.9 (0.2-0.8); MONOCYTES % 9.5 % (4.4-11.3); NEUTROPHILS # (AUTO) 7.3 (2.1-6.9); NEUTROPHILS % 78.5 % (38.7-80.0); PLATELET COUNT 370 x10e3/uL (140-360); RED BLOOD COUNT 3.25 x10e6/uL (4.3-5.7); RED CELL DISTRIBUTION WIDTH 14.3 % (11.7-14.4)
[2017-10-07] MEDS: ALBUTEROL/IPRATROPIUM 3 ML NEB NEB SCH ×5 (07:15→23:30)
[2017-10-07] MEDS: ACETYLCYSTEINE 20% INHAL SOLN 30 ML VIAL INH SCH ×5 (07:15→23:00)
[2017-10-07 07:26] LABS: ANION GAP 15.4 mmol/L (8-16); BLOOD UREA NITROGEN 17 mg/dL (7-26); BUN/CREATININE RATIO 22 (6-25); CALCIUM 8.8 mg/dL (8.4-10.2); CARBON DIOXIDE 24 mmol/L (22-29); CHLORIDE 107 mmol/L (98-107); CREATININE, SERUM 0.77 mg/dL (0.72-1.25); EST GLOMERULAR FILTRATION RATE > 60 ML/MIN (60-); GLUCOSE 125 mg/dL (74-118); POTASSIUM 4.4 mmol/L (3.5-5.1); SODIUM 142 mmol/L (136-145)
[2017-10-07 07:58] VITALS: BP 159/89
[2017-10-07] MEDS: MULTIVITAMINS 5 ML LIQUID GT SCH (09:45)
[2017-10-07] MEDS: FAMOTIDINE 20 MG TAB PEG SCH ×2 (09:45→21:14)
[2017-10-07] MEDS: CLONAZEPAM 1 MG TAB PEG SCH ×2 (09:45→21:14)
[2017-10-07] MEDS: CALCIUM CARBONATE 500 MG CHEWABLE TABS PEG SCH ×2 (09:45→17:18)
[2017-10-07] MEDS: FERROUS SULFATE 325 MG TAB PEG SCH ×2 (09:45→17:18)
[2017-10-07] MEDS: ASCORBIC ACID 500 MG TAB PEG SCH ×2 (09:45→17:18)
[2017-10-07] MEDS: LAMOTRIGINE 100 MG TAB PEG SCH ×2 (09:45→17:18)
[2017-10-07] MEDS: MAGNESIUM OXIDE 400 MG TAB PEG SCH ×2 (09:45→17:18)
[2017-10-07] MEDS: QUETIAPINE FUMARATE 25 MG TAB PEG SCH ×3 (09:45→21:15)
[2017-10-07] MEDS: LEVETIRACETAM ORAL SOLUTION 500 MG/5 ML SOLN PEG SCH ×2 (10:00→17:18)
[2017-10-07 12:00] VITALS: BP 117/61
[2017-10-07] MEDS ORDERED: TRAMADOL HCL 50 MG TAB PO PRN (12:30)
[2017-10-07] MEDS: PHENYTOIN 100 MG/4 ML CUP PO SCH (12:30)
[2017-10-07 16:08] VITALS: BP 93/50
[2017-10-07] MEDS: LEVOFLOXACIN 750MG/D5W 150ML 150 ML IV SCH (18:17)
[2017-10-07 20:00] VITALS: BP 101/59
[2017-10-08] VITALS: BP 95/60
[2017-10-08] MEDS: ACETYLCYSTEINE 20% INHAL SOLN 30 ML VIAL INH SCH ×4 (03:00→15:00)
[2017-10-08] MEDS: ALBUTEROL/IPRATROPIUM 3 ML NEB NEB SCH ×4 (03:00→16:40)
[2017-10-08 04:00] VITALS: BP 99/59
[2017-10-08] MEDS: METOCLOPRAMIDE HCL 10 MG TAB PEG SCH ×2 (06:00→15:00)
[2017-10-08] MEDS: GUAIFENESIN 200 MG/10 ML UDC PO SCH ×3 (06:00→15:00)
[2017-10-08 06:51] LABS: BASOPHILS % 0.5 % (0.0-1.0); EOSINOPHILS % 0.5 % (0.0-6.0); HEMATOCRIT 27.2 % (38.2-49.6); HEMOGLOBIN 8.4 g/dL (14.0-18.0); LYMPHOCYTES # (AUTO) 0.9 (1.0-3.2); LYMPHOCYTES % 15.9 % (18.0-39.1); MEAN CORPUSCULAR HEMOGLOBIN 27.1 pg (28-32); MEAN CORPUSCULAR HGB CONC 30.9 g/dL (31-35); MEAN CORPUSCULAR VOLUME 87.7 fL (81-99); MONOCYTES # (AUTO) 0.8 (0.2-0.8); MONOCYTES % 13.4 % (4.4-11.3); NEUTROPHILS # (AUTO) 3.9 (2.1-6.9); NEUTROPHILS % 69.2 % (38.7-80.0); PLATELET COUNT 388 x10e3/uL (140-360); RED CELL DISTRIBUTION WIDTH 14.3 % (11.7-14.4)
[2017-10-08 07:18] LABS: ANION GAP 13.2 mmol/L (8-16); BLOOD UREA NITROGEN 19 mg/dL (7-26); BUN/CREATININE RATIO 25 (6-25); CALCIUM 8.6 mg/dL (8.4-10.2); CARBON DIOXIDE 26 mmol/L (22-29); CHLORIDE 105 mmol/L (98-107); CREATININE, SERUM 0.76 mg/dL (0.72-1.25); EST GLOMERULAR FILTRATION RATE > 60 ML/MIN (60-); GLUCOSE 117 mg/dL (74-118); POTASSIUM 4.2 mmol/L (3.5-5.1); SODIUM 140 mmol/L (136-145)
[2017-10-08] MEDS ORDERED: SODIUM CHLORIDE 0.9% 250ML 250 ML IV ONE ×2 (08:00→08:30)
[2017-10-08 08:14] VITALS: BP 90/71
[2017-10-08] MEDS: FERROUS SULFATE 325 MG TAB PEG SCH (08:22)
[2017-10-08] MEDS: QUETIAPINE FUMARATE 25 MG TAB PEG SCH ×2 (08:22→15:10)
[2017-10-08] MEDS: MAGNESIUM OXIDE 400 MG TAB PEG SCH (08:22)
[2017-10-08] MEDS: CLONAZEPAM 1 MG TAB PEG SCH (08:22)
[2017-10-08] MEDS: CALCIUM CARBONATE 500 MG CHEWABLE TABS PEG SCH (08:22)
[2017-10-08] MEDS: LEVETIRACETAM ORAL SOLUTION 500 MG/5 ML SOLN PEG SCH ×2 (08:22→18:15)
[2017-10-08] MEDS: ASCORBIC ACID 500 MG TAB PEG SCH (08:22)
[2017-10-08] MEDS: FAMOTIDINE 20 MG TAB PEG SCH (08:22)
[2017-10-08] MEDS: LAMOTRIGINE 100 MG TAB PEG SCH ×2 (08:22→18:15)
[2017-10-08] MEDS: MULTIVITAMINS 5 ML LIQUID GT SCH (08:22)
[2017-10-08 12:02] VITALS: BP 106/71
[2017-10-08] MEDS: PHENYTOIN 100 MG/4 ML CUP PO SCH (12:45)
[2017-10-08] MEDS ORDERED: LEVAQUIN500 MG PO (14:01)
[2017-10-08] MEDS ORDERED: Albuterol/Ipratropium Nebulize NEB (14:04)
[2017-10-08] MEDS ORDERED: LEVAQUIN500 MG PEG (14:04)
[2017-10-08] MEDS ORDERED: GUAIFENESI100 MG/5 M PEG (14:04)
[2017-10-08] MEDS ORDERED: MULTIVITAM9 MG/15 ML GT (14:11)
[2017-10-08] MEDS ORDERED: FEOSOL325 MG PEG (14:11)
[2017-10-08] MEDS ORDERED: MAGNESIUM OXID400 MG PEG (14:11)
[2017-10-08] MEDS ORDERED: ASCORBIC ACID500 MG PEG (14:11)
[2017-10-08] MEDS ORDERED: ZINC SULFATE220 MG PEG (14:11)
[2017-10-08] MEDS ORDERED: CALCIUM 500 +1 EAC2 PEG (14:11)
--- NOTE | 2017-10-08 15:25 | Diagnostic Imaging Report ---
PROCEDURE: A single AP view of the chest. COMPARISON: Patients [facility], , CHEST SINGLE (PORTABLE), 09/28/2017, 16:39. INDICATIONS: DECUBITUS ULCER FOLLOW UP FINDINGS: Lines/tubes: None. Lungs: The lungs are well inflated and clear. There is no evidence of pneumonia or pulmonary edema.. Minimal basal atelectatic changes. Pleura: There is no pleural effusion or pneumothorax. Heart and mediastinum: The heart and the mediastinum are unremarkable. Bones: No acute bony abnormality. IMPRESSION: 1. minimal basal atelectatic changes. Efra Centeno M.D. Dictated by: Efra Centeno M.D. on 10/08/2017 at 15:33 Electronically approved by: Efra Centeno M.D. on 10/08/2017 at 15:33
[2017-10-08 16:03] VITALS: BP 111/71
--- NOTE | 2017-10-08 23:25 | Discharge Summary ---
ADMITTING DIAGNOSIS: Decubitus ulcer that was bleeding and infected. DISCHARGE DIAGNOSES 1. Decubitus ulcer that was bleeding and infected. 2. Gastrointestinal bleed. 3. Bronchitis. HISTORY: Patient has a history of old stroke with seizure disorder, PEG placement, dementia, dysphagia, aphagia. HOSPITAL COURSE: [id number]-[id number]-[id number] male presented with bleeding ulcer, family was taking care of the ulcer at home with home health, but they could not get the bleeding to stop, so they called EMS, so patient was transported to hospital for evaluation. Patient was started on vancomycin and Zosyn IV. Wound care consulted. Wound cultures ordered, and Dr. Murray consulted for debridement. On September 30, the patient had excisional debridement of the sacral ulcer with suture ligation of bleeding vessel. Urine cultures were negative, wound cultures negative, and blood cultures negative as well. On admission, the patient had a chest x-ray, which was negative. Patient was noted to have positive fecal occult stool. GI was consulted, but GI wished to not do any procedures on the patient as the hemoglobin was stable. On discharge, an additional chest x-ray was done, which showed lungs well inflated and clear, no evidence of pneumonia or edema. Patient did not have a fever. Sodium 140, potassium 4.2, hemoglobin 8.4 and stable, hematocrit 27.2 and WBC of 5.67. Patient was denied LTAC and transferred to [facility] for further wound care prior to returning home per daughter, who is POA, request. Dictated by Deana Neves NP APRIL WASSERMAN MD Job#: [id number]
[2017-10-09] MEDS ORDERED: LEVOFLOXACIN 500 MG TAB PEG SCH (09:00)
== END 2017-10-08 18:39 | DRG 570 ==
LOC: EDSEX 15:38 → ER 15:38 → ERHOLD 18:17 → MED/SURG3 20:39
PROVIDERS: ADMIT Internal Medicine; ATTEND Internal Medicine
PROC: 06LY0ZZ Occlusion of Lower Vein, Open Approach (ICD-10-PCS; 2017-09-30)
PROC: 0JB90ZZ Excision of Buttock Subcutaneous Tissue and Fascia, Open Approach (ICD-10-PCS; principal; 2017-09-30 10:48)
DX: L89.153 Pressure ulcer of sacral region, stage 3 (principal); E44.0 Moderate protein-calorie malnutrition; K92.2 Gastrointestinal hemorrhage, unspecified; F03.90 Unspecified dementia, unspecified severity, without behavioral disturbance, psychotic disturbance, mood disturbance, and anxiety; Z93.1 Gastrostomy status; Z68.1 Body mass index [BMI] 19.9 or less, adult; I97.42 Intraoperative hemorrhage and hematoma of a circulatory system organ or structure complicating other procedure; I69.398 Other sequelae of cerebral infarction; L08.9 Local infection of the skin and subcutaneous tissue, unspecified; J40 Bronchitis, not specified as acute or chronic; Z74.01 Bed confinement status; I69.391 Dysphagia following cerebral infarction; I69.320 Aphasia following cerebral infarction
CPT/HCPCS: 36415; 71010; 80048; 80053; 80202; 82270; 82607; 82728; 82746; 82948; 83540; 83735; 83880; 84134; 84439; 84443; 84466; 85025; 85045; 87040; 87071; 87086; 87205; 99284; J1170; J1940; J2405; J2543; J3370; J3480; J7030

== ENCOUNTER 2017-11-29 02:11 | Emergency (ER) | payer MEDICARE ==
[~2017-11-29] VITALS: Ht 175.3 cm; Wt 52.2 kg
[~2017-11-29 02:11] MED LIST: ASCORBIC ACID500 MG PEG; Albuterol/Ipratropium Nebulize NEB; CALCIUM 500 +1 EAC2 PEG; CLONAZEPAM1 MG PEG; FEOSOL325 MG PEG; FLUCONAZOLE100 MG PEG; GUAIFENESI100 MG/5 M PEG; LAMOTRIGINE100 MG PEG; LEVAQUIN500 MG PEG; LEVAQUIN500 MG PO; LEVETIRACE100 MG/1 M PEG; MAGNESIUM OXID400 MG PEG; MULTIVITAM9 MG/15 ML GT; PHENYTOIN125 MG/5 M PEG; QUETIAPINE FUMA25 MG PEG; ZINC SULFATE220 MG PEG
[2017-11-29] MEDS ORDERED: DIATRIZOATE MEGL/DIATRIZOA SOD 30 ML BTL PO ONE (02:26)
--- NOTE | 2017-11-29 02:53 | Diagnostic Imaging Report ---
ABDOMEN-1VIEW (KUB) Clinical history: \S\with gastrograffin to eval peg tube position \[id number] \S\0153 \S\Y Technique: AP view abdomen Comparison: None Findings: See impression. Impression: Motion artifact. G tube overlies the left upper quadrant. Contrast opacification of the stomach and proximal small bowel after injection. Stomach contour is slightly unusual, which may be related to underdistention. Signed by: Dr Katlyn Santamaria MD on 11/29/2017 2:50 AM
[2017-11-29 03:05] VITALS: BP 110/68
== END 2017-11-29 03:10 ==
LOC: ER 02:11
DX: K94.23 Gastrostomy malfunction (principal); R13.10 Dysphagia, unspecified; R40.3 Persistent vegetative state; G20 Parkinson's disease; Y83.3 Surgical operation with formation of external stoma as the cause of abnormal reaction of the patient, or of later complication, without mention of misadventure at the time of the procedure; Y92.129 Unspecified place in nursing home as the place of occurrence of the external cause; K21.9 Gastro-esophageal reflux disease without esophagitis; R56.9 Unspecified convulsions; Z86.73 Personal history of transient ischemic attack (TIA), and cerebral infarction without residual deficits
CPT/HCPCS: 74018; 99284

== ENCOUNTER 2017-11-29 13:29 | Emergency (ER) | payer MEDICARE ==
[~2017-11-29] VITALS: Ht 175.3 cm; Wt 52.2 kg
[2017-11-29] MEDS ORDERED: DIATRIZOATE MEGL/DIATRIZOA SOD 30 ML BTL PO ONE (14:27)
[2017-11-29 14:58] VITALS: BP 108/70
--- NOTE | 2017-11-29 15:13 | Diagnostic Imaging Report ---
EXAM: GI TUBE EVAL PERC, ABDOMEN-1VIEW (KUB), DATE: 11/29/2017 2:14 PM INDICATION: PEG tube replacement. Check for position. COMPARISON: None FINDINGS: 30 cc of Gastrografin were administered via PEG tube by charge histotechnologist and portable KUB obtained. Contrast opacification of the gastric fundus. A small volume of contrast is also present epigastric region, however, likely represents residual contrast within the colon. LINES/TUBES: None BOWEL PATTERN: No evidence for obstruction. Residual contrast within the colon. SOFT TISSUES: No abnormal calcifications. No mass effect. LUNG BASES: Not included BONES: No acute findings. IMPRESSION: The percutaneous gastrostomy tube appears in adequate position. Signed by: Dr. Shukri Delcid M.D. on 11/29/2017 3:09 PM
--- NOTE | 2017-11-29 15:13 | Diagnostic Imaging Report ---
EXAM: GI TUBE EVAL PERC, ABDOMEN-1VIEW (KUB), DATE: 11/29/2017 2:14 PM INDICATION: PEG tube replacement. Check for position. COMPARISON: None FINDINGS: 30 cc of Gastrografin were administered via PEG tube by remote sensing technologist and portable KUB obtained. Contrast opacification of the gastric fundus. A small volume of contrast is also present epigastric region, however, likely represents residual contrast within the colon. LINES/TUBES: None BOWEL PATTERN: No evidence for obstruction. Residual contrast within the colon. SOFT TISSUES: No abnormal calcifications. No mass effect. LUNG BASES: Not included BONES: No acute findings. IMPRESSION: The percutaneous gastrostomy tube appears in adequate position. Signed by: Dr. Shukri Delcid M.D. on 11/29/2017 3:09 PM
== END 2017-11-29 14:45 | disposition home or self-care (01) ==
LOC: ER 13:29
DX: Z43.1 Encounter for attention to gastrostomy (principal)
CPT/HCPCS: 49465; 74018; 99283

== ENCOUNTER 2017-11-30 08:04 | Emergency (ER) | payer MEDICARE ==
[~2017-11-30] VITALS: Ht 175.3 cm; Wt 52.2 kg
--- NOTE | 2017-11-30 09:20 | Diagnostic Imaging Report ---
PROCEDURE:X-RAY ABDOMEN - KUB COMPARISON:[facility], IR, GI TUBE EVAL PERC, 11/29/2017, 14:07. INDICATIONS:G TUBE PLACEMENT FINDINGS: There is a non-obstructed bowel-gas pattern. A G-tube overlies the mid to upper abdomen. It does not appear significantly changed compared to the prior study when allowing for difference in rotation. Contrast injection would be required to determine whether the G-tube remains luminal. There are no calcifications projected over the renal shadows, expected course of the ureters or bladder. There are no acute osseous abnormalities. CONCLUSION: G-tube overlying the mid to upper abdomen. Lazrao Peguero D.O. Dictated by: Lazaro Peguero D.O. on 11/30/2017 at 9:20 Electronically approved by: Lazaro Peguero D.O. on 11/30/2017 at 9:20
[2017-11-30] MEDS ORDERED: DIATRIZOATE MEGL/DIATRIZOA SOD 30 ML BTL PO ONE (09:31)
--- NOTE | 2017-11-30 09:50 | Diagnostic Imaging Report ---
PROCEDURE:X-RAY ABDOMEN - KUB COMPARISON:Patients [facility], DX, ABDOMEN-1VIEW (KUB), 11/30/2017, 8:48. INDICATIONS:G TUBE PLACEMENT WITH GASTRO FINDINGS: Contrast has been injected into the upper abdominal G-tube. Although the exam is degraded by patient motion it appears that the tube is luminal. CONCLUSION: G-tube appears luminal. Lazaro Peguero D.O. Dictated by: Lazaro Peguero D.O. on 11/30/2017 at 9:49 Electronically approved by: Lazaro Peguero D.O. on 11/30/2017 at 9:49
[2017-11-30 10:07] VITALS: BP 112/84
[2017-12-01] MEDS ORDERED: QUESTRAN PACKET4 GM PEG (03:47)
[2017-12-01] MEDS ORDERED: VANCOMYCIN1 GM/250 M IV (03:47)
[2017-12-01] MEDS ORDERED: METOPROLOL TART25 MG PEG (03:47)
[2017-12-01] MEDS ORDERED: ZOSYN 3.373.375 GM/5 IVP (03:47)
[2017-12-01] MEDS ORDERED: LOVENOX60 MG/0.6 SC (03:47)
[2017-12-01] MEDS ORDERED: TYLENOL WITH C1 EACH PEG (03:47)
[2017-12-01] MEDS ORDERED: METOCLOPRAM5 MG/5 ML PEG (03:47)
[2017-12-01] MEDS ORDERED: ZOFRAN ODT4 MG PEG (03:47)
[2017-12-01] MEDS ORDERED: ROPINIROLE HC0.25 MG PEG (03:47)
[2017-12-01] MEDS ORDERED: TUMS200 MG PEG (03:47)
== END 2017-11-30 10:13 | disposition home or self-care (01) ==
LOC: ER 08:04
DX: Z43.1 Encounter for attention to gastrostomy (principal)
CPT/HCPCS: 43760; 74018; 99283

== ENCOUNTER 2017-12-01 03:25 | Emergency (ER) | payer MEDICARE ==
[~2017-12-01] VITALS: Ht 175.3 cm; Wt 52.2 kg
--- OUTSIDE RECORDS SUMMARY | 2017-12-01 03:27 | XMS REPORT ---
Author Author [facility] Address Unknown Phone Unavailable Care Team Providers Care Ore Dryer Name Role Phone MANDY VICTORIA Unavailable Unavailable KIMI WRIGHT Unavailable Unavailable VASILIY CAMACHO Unavailable Unavailable APRIL WASSERMAN Unavailable Unavailable Problems This patient has no known problems. Allergies, Adverse Reactions, Alerts This patient has no known allergies or adverse reactions. Medications This patient has no known medications. Results Test Description Test Time Test Comments Text Results Atomic Results Result Comments ABDOMEN-1VIEW (KUB) [place] [address] Patient Name: ADEN PATEL MR #: [id number] : 1945 Age/Sex: 72/M Req #: [id number] Adm Physician: Ordered by: MANDY VICTORIA MD Report #: [id number] Location: ER Room/Bed: Procedure: [id number] DX/ABDOMEN-1VIEW (KUB) Exam Date: Exam Time: REPORT STATUS: Signed PROCEDURE: X-RAY ABDOMEN - KUB COMPARISON: [facility], DX, ABDOMEN-1VIEW (KUB), , 8:48. INDICATIONS: G TUBE PLACEMENT WITH GASTRO FINDINGS : Contrast has been injected into the upper abdominal G-tube. Although the exam is degraded by patient motion it appears that the tube is luminal. CONCLUSION: G-tube appears luminal. Lazaro Carrion D.O. Dictated by: Lazaro Carrion D.O. on 11/30/2017 at 9:49 Electronically approved by: Lazaro Carrion D.O. on 11/30/2017 at 9:49 Dictated By: LAZARO CARRION DO 8 COPY TO: MANDY VICTORIA MD ABDOMEN-1VIEW (KUB) [place] [address] Patient Name: ADEN PATEL MR #: [id number] : 1945 Age/Sex: 72/M Req #: [id number] Adm Physician: Ordered by: MANDY VICTORIA MD Report #: [id number] Location: ER Room/Bed: Procedure: [id number] DX/ABDOMEN-1VIEW (KUB) Exam Date: 11/30/17 Exam Time: 0845 REPORT STATUS: Signed PROCEDURE: X-RAY ABDOMEN - KUB COMPARISON: [facility], , GI TUBE EVAL PERC , 11/29/2017, 14:07. INDICATIONS: G TUBE PLACEMENT FINDINGS: There is a non-obstructed bowel-gas pattern. A G-tube overlies the mid to upper abdomen. It does not appear significantly changed compared to the prior study when allowing for difference in rotation. Contrast injection would be required to determine whether the G-tube remains luminal. There are no calcifications projected over the renal shadows, expected course of the ureters or bladder. There are no acute osseous abnormalities. CONCLUSION: G-tube overlying the mid to upper abdomen. Lazaro Carrion D.O. Dictated by: Lazaro Carrion D.O. on 11/30/2017 at 9:20 Electronically approved by: Lazaro Carrion D.O. on 11/30/2017 at 9:20 Dictated By: LAZARO CARRION DO 9 Transcribed By: TRAV on 11/30/17919 COPY TO: MANDY VICTORIA MD ABDOMEN-1VIEW (KUB) [place] [address] Patient Name: ADEN PATEL MR #: [id number] : 1945 Age/Sex: 72/M Req #: [id number] Adm Physician: Ordered by: HENRIK RIVERA NP Report #: [id number] Location: ER Room/Bed: Procedure: [id number] DX/ABDOMEN-1VIEW (KUB) Exam Date: Exam Time: REPORT STATUS: Signed EXAM: GI TUBE CARLOS ALBERTO FOSTER ABDOMEN-1VIEW (KUB), DATE: 11/29/2017 2:14 PM INDICATION: PEG tube replacement. Check for position. COMPARISON: None FINDINGS: 30 cc of Gastrografin were administered via PEG tube by sterile processing technologist and portable KUB obtained. Contrast opacification of the gastric fundus. A small volume of contrast is also present epigastric region, however, likely represents residual contrast within the colon. LINES/TUBES: None BOWEL PATTERN: No evidence for obstruction. Residual contrast within the colon. SOFT TISSUES: No abnormal calcifications. No mass effect. LUNG BASES : Not included BONES: No acute findings. IMPRESSION: The percutaneous gastrostomy tube appears in adequate position. Signed by: Dr. Shukri Fuller M.D. on 11/29/2017 3:09 PM Dictated By: CHRISTIANO FULLER MD, MD 08 COPY TO: HENRIK RIVERA NP GI TUBE EVAL PERC [place] [address] Patient Name: ADEN PATEL MR #: [id number] : 1945 Age/Sex: 72/M Req # : [id number] Adm Physician: Ordered by: HENRIK RIVERA NP Report #: [id number] Location: ER Room/Bed: Procedure: [id number] IR/GI TUBE EVAL PERC Exam Date: 11/29/17 Exam Time: 1415 REPORT STATUS: Signed EXAM: GI TUBE EVAL PERC, ABDOMEN-1VIEW (KUB ), DATE: 11/29/2017 2:14 PM INDICATION: PEG tube replacement. Check for position. COMPARISON: None FINDINGS: 30 cc of Gastrografin were administered via PEG tube by sterile processing technologist and portable KUB obtained. Contrast opacification of the gastric fundus. A small volume of contrast is also present epigastric region, however, likely represents residual contrast within the colon. LINES/TUBES: None BOWEL PATTERN: No evidence for obstruction. Residual contrast within the colon. SOFT TISSUES: No abnormal calcifications. No mass effect. LUNG BASES: Not included BONES: No acute findings. IMPRESSION: The percutaneous gastrostomy tube appears in adequate position. Signed by: Dr. Shukri Fuller M.D. on 11/29/2017 3:09 PM Dictated By: CHRISTIANO FULLER MD, MD 08 Transcribed By: MINDA on 11/29/171508 COPY TO: HENRIK RIVERA NP ABDOMEN-1VIEW (KUB) [place] [address] Patient Name: ADEN PATEL MR #: [id number] : 1945 Age/Sex: 72/M Req #: [id number] Adm Physician: Ordered by: VASILIY CAMACHO MD Report #: [id number] Location: ER Room/Bed: ___ Procedure: [id number] DX/ABDOMEN-1VIEW (KU) Exam Date: 11/29/17 Exam Time: 0153 REPORT STATUS: Signed ABDOMEN- 1VIEW (KU) Clinical history: S with gastrograffin to eval peg tube position S [id number] Technique: AP view abdomen Comparison: None Findings: See impression. Impression: Motion artifact. G tube overlies the left upper quadrant. Contrast opacification of the stomach and proximal small bowel after injection. Stomach contour is slightly unusual, which may be related to underdistention. Signed by: Dr Ernestina Sanchez MD on 11/29/2017 2:50 AM Dictated By: ERNESTINA SANCHEZ MD 9 Transcribed By: MINDA on 11/29 COPY TO: VASILIY CAMACHO MD CHEST SINGLE (PORTABLE) [place] [address] Patient Name: ADEN PATEL MR #: [id number] : 1945 Age/Sex: 72/M Req #: [id number] Adm Physician: APRIL WASSERMAN MD Ordered by: Sae Espinosa DOG BARBER Report #: [id number] Location: MED/SURG3 Room/Bed: [facility]-1 Procedure: [id number] DX/CHEST SINGLE (PORTABLE) Exam Date: 10/08/17 Exam Time: 1400 REPORT STATUS: Signed PROCEDURE: A single AP view of the chest. COMPARISON: [facility], DX, CHEST SINGLE (PORTABLE), 09/28/2017, 16:39. INDICATIONS: DECUBITUS ULCER FOLLOW UP FINDINGS: Lines/tubes: None. Lungs: The lungs are well inflated and clear. There is no evidence of pneumonia or pulmonary edema.. Minimal basal atelectatic changes. Pleura: There is no pleural effusion or pneumothorax. Heart and mediastinum: The heart and the mediastinum are unremarkable. Bones: No acute bony abnormality. IMPRESSION: 1. minimal basal atelectatic changes. Efra Phillip M.D. Dictated by: Efra Phillip M.D. on 10/08/2017 at 15:33 Electronically approved by: Efra Phillip M.D. on 10/08/2017 at 15:33 Dictated By: EFRA PHILLIP MD 1533 Transcribed By: TRAV on 10/08/17 1533 COPY TO: SAE ESPINOSA DOG BARBER CHEST SINGLE (PORTABLE) [place] [address] Patient Name: ADEN PATEL MR #: [id number] : 1945 Age/Sex: 72/M Req #: [id number] Adm Physician: APRIL WASSERMAN MD Ordered by: TOLU YANEZ MD Report #: [id number] Location: MED/SURG3 Room/Bed: [facility] Procedure: [id number] DX/CHEST SINGLE (PORTABLE) Exam Date: 09/28/17 Exam Time: 1650 REPORT STATUS: Signed PROCEDURE: CHEST SINGLE (PORTABLE) COMPARISON: None. INDICATIONS: COUGH FINDINGS: LUNGS: No consolidations or edema. PLEURA : No effusions or pneumothorax. HEART T MEDIASTINUM: The heart is within normal size-limits. BONES T SOFT TISSUES: No acute findings. Linear metallic object projecting just medial to the left clavicular head may be external to the patient. Skin folds project over the right hemithorax. CONCLUSION: No acute cardiopulmonary abnormality. Dictated by: Génesis Ramesh M.D. on 09/28/2017 at 17:17 Electronically approved by: Génesis Ramesh M.D. on 09/28/2017 at 17:17 Dictated By: GÉNESIS RAMESH MD 16 Transcribed By: TRAV on 09/28/171716 COPY TO: TOLU YANEZ MD
[2017-12-01] MEDS ORDERED: ZOFRAN ODT4 MG PEG (03:47)
[2017-12-01] MEDS ORDERED: ZOSYN 3.373.375 GM/5 IVP (03:47)
[2017-12-01] MEDS ORDERED: TYLENOL WITH C1 EACH PEG (03:47)
[2017-12-01] MEDS ORDERED: ROPINIROLE HC0.25 MG PEG (03:47)
[2017-12-01] MEDS ORDERED: QUESTRAN PACKET4 GM PEG (03:47)
[2017-12-01] MEDS ORDERED: VANCOMYCIN1 GM/250 M IV (03:47)
[2017-12-01] MEDS ORDERED: TUMS200 MG PEG (03:47)
[2017-12-01] MEDS ORDERED: METOCLOPRAM5 MG/5 ML PEG (03:47)
[2017-12-01] MEDS ORDERED: LOVENOX60 MG/0.6 SC (03:47)
[2017-12-01] MEDS ORDERED: METOPROLOL TART25 MG PEG (03:47)
[2017-12-01] MEDS ORDERED: DIATRIZOATE MEGL/DIATRIZOA SOD 30 ML BTL PO ONE (03:59)
--- NOTE | 2017-12-01 04:45 | Diagnostic Imaging Report ---
EXAM: ABDOMEN-1VIEW (KUB) DATE: 12/01/2017 3:51 AM Time stamp on exam: 0401 AM INDICATION: Gastrografin for PEG tube confirmation COMPARISON: 11/30/2017 FINDINGS: LINES/TUBES: PEG tube is visualized with tip at the level of the gastric body/antrum. Radiopaque contrast opacifies the stomach without evidence of leak. BOWEL PATTERN: No evidence for obstruction. SOFT TISSUES: No abnormal calcifications. No mass effect. LUNG BASES: Lung bases are clear BONES: No acute findings. IMPRESSION: Unremarkable examination. Signed by: Dr. Sb Tavarez M.D. on 12/01/2017 4:42 AM
[2017-12-01 04:53] VITALS: BP 130/67
== END 2017-12-01 05:02 ==
LOC: ER 03:25
DX: K94.23 Gastrostomy malfunction (principal); R41.82 Altered mental status, unspecified; R40.3 Persistent vegetative state; Z74.01 Bed confinement status
CPT/HCPCS: 74018; 99283

== ENCOUNTER 2017-12-02 11:31 | Emergency (ER) | payer MEDICARE ==
[~2017-12-02] VITALS: Ht 175.3 cm; Wt 52.2 kg
[~2017-12-02 11:31] MED LIST changes: +LOVENOX60 MG/0.6 SC; +METOCLOPRAM5 MG/5 ML PEG; +METOPROLOL TART25 MG PEG; +QUESTRAN PACKET4 GM PEG; +ROPINIROLE HC0.25 MG PEG; +TUMS200 MG PEG; +TYLENOL WITH C1 EACH PEG; +VANCOMYCIN1 GM/250 M IV; +ZOFRAN ODT4 MG PEG; +ZOSYN 3.373.375 GM/5 IVP
[2017-12-02] MEDS ORDERED: DIATRIZOATE MEGLUMINE 300 MG/1 ML BTL UR ONE (12:10)
[2017-12-02] MEDS ORDERED: DIATRIZOATE MEGL/DIATRIZOA SOD 30 ML BTL PO ONE (12:12)
--- NOTE | 2017-12-02 12:50 | Diagnostic Imaging Report ---
PROCEDURE:X-RAY ABDOMEN - KUB COMPARISON:Abdomen x-ray 12/01/17 INDICATIONS:G TUBE PLACEMENT W/ GASTROGRAFIN FINDINGS: Portable image obtained at 1215 hrs. Water-soluble contrast has been instilled through a percutaneous gastrostomy. The tip is located within the stomach. No extravasation. There is contrast in a bowel loop in the lower pelvis likely from previous exam. Bowel gas pattern is normal. No dilated bowel loops. There are no calcifications projected over the renal shadows or the expected course of the ureters or bladder. The osseous structures are stable. CONCLUSION: Percutaneous gastrostomy within the stomach. Unremarkable bowel gas pattern. Dictated by: Theresa Jackson M.D. on 12/02/2017 at 12:49 Electronically approved by: Theresa Jackson M.D. on 12/02/2017 at 12:49
[2017-12-02 13:01] VITALS: BP 133/75
== END 2017-12-02 13:20 | disposition home or self-care (01) ==
LOC: ER 11:31
DX: Z43.1 Encounter for attention to gastrostomy (principal); R47.01 Aphasia; G20 Parkinson's disease; Z86.73 Personal history of transient ischemic attack (TIA), and cerebral infarction without residual deficits
CPT/HCPCS: 74018; 99284

== ENCOUNTER 2017-12-05 12:13 | Emergency (ER) | payer MEDICARE ==
[~2017-12-05] VITALS: Ht 175.3 cm; Wt 52.2 kg
== END 2017-12-05 13:10 ==
LOC: ER 12:23
DX: Z43.1 Encounter for attention to gastrostomy (principal); F03.90 Unspecified dementia, unspecified severity, without behavioral disturbance, psychotic disturbance, mood disturbance, and anxiety; Z95.810 Presence of automatic (implantable) cardiac defibrillator
CPT/HCPCS: 99284